=== PATIENT | male | born 1940 | race Caucasian/White ===

== ENCOUNTER → 2022-07-31 | Outpatient (CLI) | payer MEDICARE ==
--- NOTE | 2022-07-31 13:33 | US ---
EXAMINATION TYPE: US venous doppler duplex LE RT DATE OF EXAM: 07/31/2022 1:16 PM COMPARISON: NONE CLINICAL HISTORY: M79.89 RIGHT LEG SWELLING. On water pills. Pain. SIDE PERFORMED: Right TECHNIQUE: The lower extremity deep venous system is examined utilizing real time linear array sonog akash with graded compression, doppler sonography and color-flow sonography. VESSELS IMAGED: Common Femoral Vein Deep Femoral Vein Greater Saphenous Vein * Femoral Vein Popliteal Vein Small Saphenous Vein * Proximal Calf Veins (* superficial vessels) Right Leg: Negative for DVT IMPRESSION: No evidence of DVT at this time.
--- NOTE | 2022-07-31 14:56 | XR ---
EXAMINATION TYPE: XR knee 4V RT, XR tibia fibula RT DATE OF EXAM: 07/31/2022 CLINICAL HISTORY: Pain. TECHNIQUE: Three views of the right knee are obtained. 2 views right leg. COMPARISON: None. FINDINGS: There is no acute fracture/dislocation evident in right knee. Moderate narrowing patellofe moral compartment. Small spur anterior superior patellar distal quadriceps tendon insertion. Mild leobardo rowing medial tibiofemoral compartment. The overlying soft tissue appears unremarkable. 2 views right leg show no acute fracture or dislocation. Visualized portion of the right ankle joint appears within normal limits. Mild diffuse subcutaneous edema is seen. IMPRESSION: As above.
== END | disposition home or self-care (01) ==
LOC: RADUSWWP 12:48
PROVIDERS: ATTEND Internal Medicine
DX: M79.89 Other specified soft tissue disorders (principal); M25.561 Pain in right knee; R60.0 Localized edema

== ENCOUNTER → 2023-05-13 | Outpatient (CLI) | payer OTHER ==
--- NOTE | 2023-05-13 15:33 | XR ---
EXAMINATION TYPE: XR chest 2V DATE OF EXAM: 05/13/2023 COMPARISON: NONE TECHNIQUE: PA and lateral views submitted. HISTORY: Cough FINDINGS: No pleural effusion or pneumothorax. Heart size normal and no overt failure. Osseous structures demo nstrate hypertrophic and degenerative changes of the spine. Bilateral pleural thickening. AC joint ar thropathy. Diffuse osteopenia. Hypertrophic and degenerative changes of the spine. Subsegmental nicole es at the left lung base. IMPRESSION: 1. Left basilar atelectasis or early infiltrate correlate clinically. Favor atelectasis.
== END | disposition home or self-care (01) ==
LOC: RADXRMAIN 15:07
PROVIDERS: ATTEND Internal Medicine
DX: J18.9 Pneumonia, unspecified organism (principal); R91.8 Other nonspecific abnormal finding of lung field
CPT/HCPCS: 71046

== ENCOUNTER → 2023-12-18 | Outpatient (CLI) | payer MEDICARE ==
--- NOTE | 2023-12-18 18:24 | PE ---
EXAMINATION TYPE: PET CT fusion skull to thigh DATE OF EXAM: 12/18/2023 CLINICAL INDICATION:Male, 82 years old with history of prostate cancer TECHNIQUE: Following the intravenous administration of 5.74 mCi of Ga-68 Illuccix (PSMA), whole bod y images are performed from the skull base to the midthigh. Images are reviewed on the computer in t he coronal, axial, and sagittal planes. Reconstructed rotating images are created on independent wor kstation and reviewed on the computer. A non-contrast CT is performed in conjunction with the PET s can. CT DLP: 925 mGycm, Automated exposure control for dose reduction was used. COMPARISON: CT None, PET/CT None, FINDINGS: Mediastinal SUV mean is 1.9. Hepatic parenchyma SUV mean is 7.5. SKULL BASE AND NECK: No suspicious radiotracer activity. CHEST, MEDIASTINUM, AND HILAR REGION: Increased radiotracer uptake within the axillary lymph nodes * Left measuring 10 mm Max SUV 5.2. * Right measuring 6 mm Max SUV 4.4. ABDOMEN AND PELVIS: * Intense radiotracer uptake within the prostate gland along the predominantly left aspect and poste riorly. Max SUV 14.7 * Right external iliac 10 mm lymph node max SUV 6.9 there is mild misregistration artifact but to be present. * Trace uptake at the level of the left kidney unclear if this is artifact axis SUV 6.1 * MUSCULOSKELETAL STRUCTURES: No suspicious radiotracer activity. OTHER CT: Bilaterally aphakia Discussion of the carotid bifurcations as well as the coronary arteries. Trace gynecomastia bilateral ly. Cholelithiasis. Fat-containing umbilical hernia. Indeterminate right adrenal gland nodule measuri ng 24 mm and 20 Hounsfield units. IMPRESSION: 1. Intense uptake within the carotid gland within the left mid gland and left apex compatible with p rostate adenocarcinoma 2. Right external iliac lymph node which may be demonstrating mild uptake. There is some misregistra tion artifact. Malignancy within the lymph node is not excluded. 3. Indeterminate right adrenal nodule. This can be completely evaluated with MRI or CT adrenal mass protocol. 4. Suspected physiologic uptake within the bilateral axillary lymph nodes.
== END | disposition home or self-care (01) ==
LOC: RADPETMAIN 13:53
PROVIDERS: ATTEND Urology
DX: C61 Malignant neoplasm of prostate (principal)
CPT/HCPCS: 78815; A9596

== ENCOUNTER → 2024-06-03 | Outpatient (CLI) | payer OTHER, MEDICARE ==
[2024-06-03 16:08] LABS: Prostate Specific Antigen 0.07 ng/mL (0.000-6.500); Testosterone <10.00 ng/dL (86.98-780.10)
== END | disposition home or self-care (01) ==
LOC: LABWHC1 09:28
PROVIDERS: ATTEND Radiology Radiation Oncology
DX: C77.5 Secondary and unspecified malignant neoplasm of intrapelvic lymph nodes (principal); C61 Malignant neoplasm of prostate
CPT/HCPCS: 36415; 84153; 84403

== ENCOUNTER → 2024-06-17 | Outpatient (CLI) | payer OTHER ==
--- NOTE | 2024-06-17 15:33 | US ---
EXAMINATION TYPE: US venous doppler duplex UE RT DATE OF EXAM: 06/17/2024 COMPARISON: NONE CLINICAL INDICATION: Male, 83 years old with history of R60.00 LOCALIZED EDEMA; Right elbow pain x 1 month. Pt hit elbow on door TECHNIQUE: Grayscale, color Doppler and spectral Doppler imaging of the upper extremity. SIDE PERFORMED: Right FINDINGS: Right Arm: No evidence for DVT. Fluid seen near right posterior elbow Grayscale, color doppler, spectral doppler imaging performed of the deep veins of the upper extremiti es. IMPRESSION: No diagnostic evidence of DVT. There is nonspecific fluid seen near the elbow. Could be within the so ft tissues or represent joint effusion. Correlate clinically. Consider dedicated elbow series to excl ude the fracture. There is a history of trauma. [facility], , 06/17/2024 3:31 PM
== END | disposition home or self-care (01) ==
LOC: RADUSWWP 14:43
PROVIDERS: ATTEND Internal Medicine
DX: R60.0 Localized edema (principal)

== ENCOUNTER → 2024-12-22 | Outpatient (CLI) | payer MEDICARE ==
--- NOTE | 2024-12-22 12:25 | FL ---
Modified barium swallow. HISTORY: Dysphagia. Modified barium swallow was performed with the department of speech pathology. The patient was prese nted with various consistencies of barium. There is no evidence for aspiration or penetration. Full report is to follow from the department of speech pathology. Impression: Normal study. [facility], , 12/22/2024 12:23 PM
== END | disposition home or self-care (01) ==
LOC: RADFLMAIN 11:46
PROVIDERS: ATTEND Internal Medicine
DX: R13.10 Dysphagia, unspecified (principal)
CPT/HCPCS: 74230

== ENCOUNTER → 2025-02-28 | Outpatient (CLI) | payer MEDICARE ==
[2025-02-28 16:08] LABS: Testosterone <10.00 ng/dL (86.98-780.10)
[2025-02-28 16:09] LABS: Prostate Specific Antigen <0.01 ng/mL (0.000-6.500)
== END | disposition home or self-care (01) ==
LOC: LABWHC1 09:02
PROVIDERS: ATTEND Radiology Radiation Oncology
DX: C61 Malignant neoplasm of prostate (principal); C77.5 Secondary and unspecified malignant neoplasm of intrapelvic lymph nodes
CPT/HCPCS: 36415; 84153; 84403

== ENCOUNTER 2025-03-07 11:01 | Emergency (ER) | payer MEDICARE ==
--- NOTE | 2025-03-07 12:27 | ED ---
General Adult HPI - General Chief complaint: Fall Stated complaint: Fall/Shoulder+Rib R injury Time Seen by Provider: 03/07/25 12:09 Source: patient, EMS, RN notes reviewed Mode of arrival: EMS Limitations: no limitations - History of Present Illness Initial comments: 84-year-old male presenting to the emergency department for complaints of right anterior rib pain after fall that occurred prior to arrival. Patient states that he was walking his garage when he forgot that he put old carpets in front of his door when he tripped over them falling onto the front of his chest with his right hand clutching the front of his chest. Patient denies hitting his head or loss of consciousness at the time of the fall. Patient states that he called on his knees to call EMS for him to be evaluated. Patient complains of right anterior chest pain with inspiration and on movement. Denies difficulty in breathing, headaches. Denies right hand pain. Last tetanus vaccine within the last 5 years. Patient notes that he has a skin tear to his left elbow. - Related Data Allergies Allergy/AdvReac Type Severity Reaction Status Date / Time No Known Allergies Allergy Verified 03/07/25 11:27 Review of Systems ROS Statement: Those systems with pertinent positive or pertinent negative responses have been documented in the HPI. ROS Other: All systems not noted in ROS Statement are negative. Past Medical History Past Medical History: Coronary Artery Disease (CAD), Cancer, Diabetes Mellitus, Hyperlipidemia, Hypertension Additional Past Medical History / Comment(s): Prostate History of Any Multi-Drug Resistant Organisms: None Reported Past Surgical History: No Surgical Hx Reported Past Psychological History: No Psychological Hx Reported Smoking Status: Never smoker Past Alcohol Use History: None Reported Past Drug Use History: None Reported General Exam Limitations: no limitations Neck exam: Present: normal inspection. Absent: tenderness, meningismus, l ymphadenopathy Respiratory exam: Present: normal lung sounds bilaterally, chest wall tenderness (anterior right near sternum). Absent: respiratory distress, wheezes, rales, r honchi, stridor Cardiovascular Exam: Present: regular rate, normal rhythm, normal heart sounds. Absent: systolic murmur, diastolic murmur, rubs, gallop, clicks GI/Abdominal exam: Present: soft, normal bowel sounds. Absent: distended, tenderness, guarding, rebound, rigid Extremities exam: Present: normal inspection, full ROM, normal capillary refill. Absent: tenderness, pedal edema, joint swelling, calf tenderness Back exam: Present: normal inspection Skin exam: Present: warm, dry, intact, normal color. Absent: rash Course Vital Signs 03/07/25 03/07/25 11:24 13:40 Temperature 98 F 98.0 F Pulse Rate 80 71 Respiratory 20 18 Rate Blood Pressure 162/76 148/82 O2 Sat by Pulse 99 96 Oximetry Medical Decision Making - Medical Decision Making Was pt. sent in by a medical professional or institution (, [facility], AUDIO VIDEO TECHNICIAN, urgent care, hospital, or senior living...) When possible be specific @ -No Did you speak to anyone other than the patient for history (EMS, parent, family, police, friend...)? What history was obtained from this source @ -No Did you review nursing and triage notes (agree or disagree)? Why? @ -I reviewed and agree with nursing and triage notes Were old charts reviewed (outside hosp., previous admission, EMS record, old EKG, old radiological studies, urgent care reports/EKG's, senior living records)? Report findings @ -No old charts were reviewed Differential Diagnosis (chest pain, altered mental status, abdominal pain women, abdominal pain men, vaginal bleeding, weakness, fever, dyspnea, syncope, headache, dizziness, GI bleed, back pain, seizure, CVA, palpatations, mental health, musculoskeletal)? @ -Rib contusion, rib fracture, pulmonary contusion, pneumothorax, this list is not all inclusive EKG interpreted by me (3pts min.). @ -None X-rays interpreted by me (1pt min.). @ -XR Right ribs with PA chest no acute osseous pathology. CT interpreted by me (1pt min.). @ -None done U/S interpreted by me (1pt. min.). @ -None done What testing was considered but not performed or refused? (CT, X-rays, U/S, labs)? Why? @ -None What meds were considered but not given or refused? Why? @ -None Did you discuss the management of the patient with other professionals (professionals i.e. [facility] Singh, AUDIO VIDEO TECHNICIAN, lab, RT, psych nurse, mental health social worker, telephone order clerk, teacher, unemployment insurance hearing officer, spring encaser)? Give summary @ -No Was smoking cessation discussed for >3mins.? @ -No Was critical care preformed (if so, how long)? @ -No Were there social determinants of health that impacted care today? How? (Homelessness, low income, unemployed, alcoholism, drug addiction, transportation, low edu. Level, literacy, decrease access to med. care, shelter, rehab)? @ -No Was there de-escalation of care discussed even if they declined (Discuss DNR or withdrawal of care, Hospice)? DNR status @ -No What co-morbidities impacted this encounter? (DM, HTN, Smoking, COPD, CAD, Cancer, CVA, ARF, Chemo, Hep., AIDS, mental health diagnosis, sleep apnea, morbid obesity)? @ -None Was patient admitted / discharged? Hospital course, mention meds given and route, prescriptions, significant lab abnormalities, going to OR and other pertinent info. @ - Discharge. 84-year-old male presenting with complaints of right anterior chest wall pain after a fall. Patient in no signs respiratory distress and pain is reproducible on examination. He is provided with dose of Tylenol for pain relief. X-ray imaging is unremarkable. Patient struck to continue supportive treatment. Case discussed with my attending Dr. Castellano Undiagnosed new problem with uncertain prognosis? @ -No Drug Therapy requiring intensive monitoring for toxicity (Heparin, Nitro, Insulin, Cardizem)? @ -No Were any procedures done? @ -No Diagnosis/symptom? @ -rib Contusion Acute, or Chronic, or Acute on Chronic? @ -Acute Uncomplicated (without systemic symptoms) or Complicated (systemic symptoms)? @ -uncomplicated Side effects of treatment? @ -No Exacerbation, Progression, or Severe Exacerbation? @ -No Poses a threat to life or bodily function? How? (Chest pain, [place], [place], pneumonia, PE, COPD, DKA, ARF, appy, cholecystitis, CVA, Diverticulitis, Homicidal, Suicidal, threat to staff... and all critical care pts) @ -No Disposition Clinical Impression: Fall, Rib pain on right side Disposition: HOME SELF-CARE Condition: Good Instructions (If sedation given, give patient instructions): Rib Contusion (ED) Additional Instructions: Please return to the Emergency Department if symptoms worsen or any other concerns. Is patient prescribed a controlled substance at d/c from ED?: No Referrals: Preston Edwards DO [Primary Care Provider] - 1-2 days Time of Disposition: 13:14
--- NOTE | 2025-03-07 13:02 | XR ---
EXAMINATION TYPE: XR ribs RT w pa chest xray DATE OF EXAM: 03/07/2025 12:57 PM INDICATION: Patient age:Male; 84 years old; Reason for study: fall, pain; PHH. pain COMPARISON: Chest radiograph 05/13/2023 TECHNIQUE: Frontal and oblique views of the right wrist with additional PA chest radiograph. FINDINGS: The ribs have a normal appearance. No evidence of fracture. Overall, the lungs are clear. The cardiac silhouette is normal in size. The remaining osseous structures are intact. IMPRESSION: No acute osseous pathology. [facility], , 03/07/2025 1:00 PM
[2025-03-07] MEDS: ACETAMINOPHEN TAB 325 MG TAB PO STA (13:32)
[2025-03-07 13:43] VITALS: BP 148/82; PULSE 71; RESP 18; TEMP 98
== END 2025-03-07 13:42 | disposition home or self-care (01) ==
LOC: EC 11:01 → SUPCPDRO 11:01 → EC 13:42
DX: S20.211A Contusion of right front wall of thorax, initial encounter (principal); W01.0XXA Fall on same level from slipping, tripping and stumbling without subsequent striking against object, initial encounter
CPT/HCPCS: 99283